=== PATIENT | male | born 1975 | race Caucasian/White ===

== ENCOUNTER 2018-09-09 08:49 | Emergency (ER) | payer MEDICARE, MEDICAID ==
[~2018-09-09] VITALS: Ht 172.7 cm; Wt 68.0 kg
[~2018-09-09 08:49] MED LIST: ASPIRIN325 PO; COLACE100 MG PO; EFFEXOR XR75 MG PO; FLEXERIL PO; IBUPROFEN 800800 MG PO; LIORESAL 10 MG10 MG PO; LYRICA 50 MG50 MG PO; NEURONTIN 300300 M1 PO; NORCO 5-325 TA1 EACH PO; OXYCODONE HCL E10 MG PO; OXYCONTIN20 M1 PO; RESTORIL15 MG PO; TESSALON PERLE100 MG PO; TRAZODONE 150150 M1 PO; VITAMINC500 PO
[2018-09-09] MEDS ORDERED: LIORESAL 10 MG10 MG PO (09:38)
[2018-09-09 09:49] VITALS: BP 133/84
== END 2018-09-09 09:50 | disposition home or self-care (01) ==
LOC: M.ERS 08:49
DX: F32.9 Major depressive disorder, single episode, unspecified (principal); Z76.0 Encounter for issue of repeat prescription; F17.210 Nicotine dependence, cigarettes, uncomplicated; Z90.49 Acquired absence of other specified parts of digestive tract

== ENCOUNTER 2018-10-01 00:39 | Emergency (ER) | payer MEDICARE ==
[~2018-10-01] VITALS: Ht 182.9 cm; Wt 102.1 kg
[2018-10-01 01:08] LABS: URINE BILIRUBIN NEGATIVE (Negative); URINE BLOOD TRACE (Negative); URINE CLARITY CLEAR; URINE COLOR YELLOW; URINE GLUCOSE-RANDOM NEGATIVE (Negative); URINE KETONES NEGATIVE (Negative); URINE LEUKOCYTES NEGATIVE (Negative); URINE NITRITE NEGATIVE (Negative); URINE PROTEIN NEGATIVE (Negative); URINE UROBILINOGEN 0.2 E.U./dl (0.2-1.0)
[2018-10-01 01:09] LABS: HEMATOCRIT 50.1 % (42.0-52.0); HEMOGLOBIN 17.2 gm/dL (14.0-18.0); MCH 31.6 pg (26.0-34.0); MCHC 34.3 g/dL (28.0-37.0); MCV 92.2 fL (80.0-100.0); MPV 10.3 fl. (7.2-11.1); RBC 5.44 mil/uL (4.50-6.00); RDW-CV 14.3 % (10.5-14.5); WBC 15.8 thou/uL (4.0-11.0)
[2018-10-01 01:17] LABS: AMP/METHAMP Negative (Negative); BARBITURATES Negative (Negative); BENZODIAZEPINES Negative (Negative); COCAINE POSITIVE (Negative); METHADONE Negative (Negative); OPIATES Negative (Negative); PCP Negative (Negative); THC POSITIVE (Negative)
[2018-10-01 01:24] LABS: CALCIUM 8.6 mg/dL (8.5-10.1); POTASSIUM 4.2 mmol/L (3.5-5.1)
[2018-10-01 01:29] LABS: ACETAMINOPHEN < 2 ug/mL (10-30); ALBUMIN 3.9 g/dL (3.4-5.0); ALCOHOL 232 mg/dL (<10); SALICYLATE 4.5 mg/dL (2.8-20.0); TOTAL BILIRUBIN 0.4 mg/dL (<0.1-1.0)
[2018-10-01 21:23] VITALS: BP 131/79
== END 2018-10-01 21:23 ==
LOC: M.ERS 00:39
PROVIDERS: Personal Emergency Response Attendant
DX: R45.851 Suicidal ideations (principal); F32.9 Major depressive disorder, single episode, unspecified; F17.210 Nicotine dependence, cigarettes, uncomplicated; Z88.6 Allergy status to analgesic agent; Z90.49 Acquired absence of other specified parts of digestive tract; Z89.511 Acquired absence of right leg below knee; Z79.899 Other long term (current) drug therapy